=== PATIENT | female | born 1990 | race African-American/Black ===

== ENCOUNTER 2016-12-27 07:27 | Emergency (ER) | payer MEDICAID ==
[~2016-12-27] VITALS: Ht 165.1 cm; Wt 60.0 kg
[~2016-12-27 07:27] MED LIST: PANT20 PO; SUCR1TAB PO
[2016-12-27 07:31] VITALS: BP 124/70; PULSE 89; RESP 15; TEMP 98.5; O2SAT 98
[2016-12-27] MEDS ORDERED: IBUP-232 PO (07:42)
[2016-12-27] MEDS ORDERED: AMOX500C PO (07:42)
--- NOTE | 2016-12-27 08:07 | PD ---
HPI . left lower jaw tooth pain > 2 weeks Chief Complaint: Oral / Dental Pain or Problem Time Seen by Provider: 08:07 Travel History International Travel<30 days: No Contact w/Intl Traveler<30days: No Traveled to known affect area: No History of Present Illness HPI 26-year-old single here with complaints of left lower jaw tooth pain for greater than 2 weeks. Patient says she is a dentist appointment on January 11. She is here complaining of pain to the left lower wisdom tooth. She is requesting something for pain control. I explained to patient that she can use ibuprofen for pain control and will need to see the dentist for tooth extraction and f/u care. She is asking for pain meds and I advised her that this is something I cannot do. PFSH Past Medical History Depression: Yes Cancer: Yes Cardiovascular Problems: No Diminished Hearing: No Endocrine: No Genitourinary: Yes Immune Disorder: No Kidney Stones: Yes Musculoskeletal: Yes Neurologic: Yes Psychiatric: Yes Reproductive: No Respiratory: No ?: Not LMP: NOVEMBER 28, 2016 Social History Alcohol Use: No Tobacco Use: Yes Substance Use: Yes (marijuana occasionally. last time was 10/11) Allergies-Medications (Allergen,Severity, Reaction): Coded Allergies: No Known Allergies (Unverified , 12/27/16) Reported Meds & Prescriptions Reported Meds & Active Scripts Active Reported Ibuprofen 600 Mg Tab 600 Mg PO BID PRN Amoxicillin 500 Mg Cap 500 Mg PO BID Review of Systems General / Constitutional: No: Fever Eyes: No: Visual changes HENT: Positive: Dental Difficulties, No: Headaches Cardiovascular: No: Chest Pain or Discomfort Respiratory: No: Shortness of Breath Gastrointestinal: No: Abdominal Pain Genitourinary: No: Dysuria Musculoskeletal: No: Pain Skin: No Rash Neurologic: No: Weakness Psychiatric: No: Depression Endocrine: No: Polydipsia Hematologic/Lymphatic: No: Easy Bruising Physical Exam Narrative GENERAL: AAO x 3, no acute distress, Well-nourished, well-developed patient. SKIN: Warm and dry. No visible rashes or bruising. HEAD: Normocephalic and atraumatic. EYES: No scleral icterus. No injection or drainage. ENT: No nasal drainage noted. Mucous membranes pink. Airway patent. #17, minimally impacted wisdom tooth. No oral abscess or gingivitis. No facial edema NECK: Supple, trachea midline. No JVD. No lymphadenopathy. CARDIOVASCULAR: Regular rate and rhythm without murmurs, gallops, or rubs. RESPIRATORY: Breath sounds equal bilaterally. No accessory muscle use. No rhonchi or rales. GASTROINTESTINAL: Abdomen soft, non-tender, nondistended. EXTREMITIES: No cyanosis or edema. BACK: Nontender without obvious deformity. No CVA tenderness. PSYCH: AAO x 3, normal affect. Data Data Last Documented VS Vital Signs Date Time Temp Pulse Resp B/P Pulse Ox O2 Delivery O2 Flow Rate FiO2 12/27/16 07:31 98.5 89 15 124/70 98 MDM Medical Decision Making Medical Screen Exam Complete: Yes Emergency Medical Condition: No Medical Record Reviewed: Yes Differential Diagnosis impacted wisdom tooth, dental caries, less likely oral abscess Narrative Course 26-year-old single here with complaints of left lower jaw tooth pain for greater than 2 weeks. Patient says she is a dentist appointment on January 11. She is here complaining of pain to the left lower wisdom tooth. She is requesting something for pain control. A medical screening exam was performed: At the time of evaluation the presenting medical condition was determined not to be of an emergent nature. The patient was given the option of receiving additional care, but declined. Patient was given options for additional community resources from which to obtain care. The Patient Has Been advised to seek medical attention for their presenting complaint. The patient has been advised to return to the ER at any time if an emergent condition develops. Diagnosis Primary Impression: Encounter for medical screening examination Condition: Stable Yanet Tanner Dec 27, 2016 08:07
== END 2016-12-27 08:16 | disposition left against medical advice (07) ==
LOC: NETRI 07:27
DX: K08.89 Other specified disorders of teeth and supporting structures (principal); Z72.0 Tobacco use
CPT/HCPCS: 99281

== ENCOUNTER 2017-03-19 09:26 | Emergency (ER) | payer MEDICAID ==
[~2017-03-19] VITALS: Ht 162.6 cm; Wt 65.0 kg
[~2017-03-19 09:26] MED LIST changes: +AMOX500C PO; +IBUP-232 PO; -PANT20 PO; -SUCR1TAB PO
[2017-03-19 09:27] VITALS: BP 134/66; PULSE 68; RESP 18; TEMP 97.5; O2SAT 100
[2017-03-19] MEDS ORDERED: TRICTAB PO (09:41)
[2017-03-19] MEDS ORDERED: SODIUM CHLOR 0.9% 1000 ML INJ 1,000 ML IV ONE (09:46)
[2017-03-19] MEDS ORDERED: ONDANSETRON HCL 4 MG/2 ML VIAL IVP ONE (10:00)
[2017-03-19] MEDS ORDERED: ZOFR4TAB3 SL (10:34)
--- NOTE | 2017-03-19 10:34 | PD ---
HPI . Vomiting Chief Complaint: Related Problem Time Seen by Provider: 09:45 Travel History International Travel<30 days: No Contact w/Intl Traveler<30days: No Traveled to known affect area: No History of Present Illness HPI Patient presents with a chief complaint of vomiting and diarrhea. Onset was last night. She states that she has had 6 episodes of emesis and 4 episodes of diarrhea since early this morning. No exacerbating or relieving factors. No associated fever, urinary tract symptoms, vaginal bleeding/discharge. The patient states that she is 4 months by dates. She states that she is scheduled for an ultrasound and pelvic exam next week. She states that her care thus far has included blood work. Her last normal menstrual period was 3. She is a Ab1 PFSH Past Medical History Anemia: Yes Depression: Yes Cancer: Yes Cardiovascular Problems: No Diminished Hearing: No Endocrine: No Genitourinary: Yes Headaches: Yes Immune Disorder: No Kidney Stones: Yes Musculoskeletal: Yes Neurologic: Yes Psychiatric: Yes Reproductive: No Respiratory: No Ulcer: Yes Tetanus Vaccination: > 5 Years Influenza Vaccination: No ?: LMP: 11/28/16 : 4 Para: 2 Past Surgical History Surgical History: No Previous Surgery Social History Alcohol Use: No Tobacco Use: No Substance Use: No (denies) Allergies-Medications (Allergen,Severity, Reaction): Coded Allergies: No Known Allergies (Unverified , 03/19/17) Reported Meds & Prescriptions Reported Meds & Active Scripts Active Zofran Odt (Ondansetron Odt) 4 Mg Tab 4 Mg SL Q6HR PRN Reported ( Vit-Ferrous Fumarate) 1 Tab Tab 1 Tab PO DAILY Review of Systems Except as stated in HPI: all other systems reviewed are Neg General / Constitutional: No: Fever, Chills Gastrointestinal: Positive: Nausea, Vomiting, Diarrhea, Abdominal Pain Genitourinary: Positive: Pelvic Pain, No: Urgency, Frequency, Dysuria, Discharge, Vaginal Bleeding Physical Exam Narrative GENERAL: Awake and alert. She had some dry heaves while I was in the room examining her. SKIN: Warm and dry. HEAD: Atraumatic. Normocephalic. EYES: Pupils equal and round. Extraocular movements are intact. ENT: No nasal bleeding or discharge. Mucous membranes pink and moist. NECK: Trachea midline. Neck is supple. CARDIOVASCULAR: Regular rate and rhythm. Heart sounds are normal. RESPIRATORY: No accessory muscle use. Lungs are clear. GASTROINTESTINAL: Abdomen soft. Suprapubic tenderness. Nondistended. MUSCULOSKELETAL: No obvious deformities. No edema. NEUROLOGICAL: Awake and alert. No obvious cranial nerve deficits. Motor grossly within normal limits. Normal speech. PSYCHIATRIC: Appropriate mood and affect; insight and judgment normal. Data Data Last Documented VS Vital Signs Date Time Temp Pulse Resp B/P Pulse Ox O2 Delivery O2 Flow Rate FiO2 03/19/17 09:27 97.5 68 18 134/66 100 Orders Urinalysis - C+S If Indicated (03/19/17 09:46) Sodium Chlor 0.9% 1000 Ml Inj (Ns 1000 M (03/19/17 09:46) Ondansetron Inj (Zofran Inj) (03/19/17 10:00) Ed Poc Ultrasound (03/19/17 09:46) Heart Tones (03/19/17 10:09) Labs Laboratory Tests Test 03/19/17 11:15 Urine Color YELLOW Urine Turbidity CLEAR Urine pH 8.5 Urine Specific [place] 1.021 Urine Protein 30 mg/dL Urine Glucose (UA) NEG mg/dL Urine Ketones 40 mg/dL Urine Occult Blood NEG Urine Nitrite NEG Urine Bilirubin NEG Urine Urobilinogen LESS THAN 2.0 MG/DL Urine Leukocyte Esterase NEG Urine RBC 4 /hpf Urine WBC 1 /hpf Urine Squamous Epithelial <1 /hpf Cells Urine Mucus FEW /lpf Microscopic Urinalysis Comment CULT NOT INDICATED MDM Medical Decision Making Medical Screen Exam Complete: Yes Emergency Medical Condition: Yes Differential Diagnosis Differential diagnosis includes but is not limited to viral gastritis, food poisoning, pancreatitis, pneumonia, hepatitis, acute coronary syndrome, Differential diagnosis of pelvic pain includes but is not limited to UTI, PID, ectopic , spontaneous AB, constipation, viral illness Narrative Course Patient presents for treatment of vomiting and diarrhea as well as pelvic pain in . Ultrasound shows a viable IUP. heart tones are 154. Patient reported immediate relief of symptoms with Zofran. UA is unremarkable. Emergency Department evaluation reveals no emergency medical condition. The patient is stable for discharge to home. Procedures Procedure Narrative Emergency Department Pelvic ultrasound was performed with patient consent. The curvilinear probe was used in the transverse and sagittal views within the suprapubic region revealing a viable intrauterine . heart rate was 154. Diagnosis Primary Impression: Pelvic pain affecting Qualified Code: O26.892 - Pelvic pain affecting , second trimester Additional Impression: Gastroenteritis Patient Instructions: Gastroenteritis (DC), General Instructions Med/Other Pt SpecificInfo: Prescription(s) given Scripts Ondansetron Odt (Zofran Odt)4 Mg Tab4 Mg SL Q6HR PRN (Nausea/Vomiting) #30 TAB Ref 0 Prov:Jadyn Love MD 03/19/17 Disposition: 01 DISCHARGE HOME Condition: Stable Jadyn Love MD Mar 19, 2017 10:34
[2017-03-19 11:26] LABS: BLOOD, URINE NEG (NEG); COMMENT (UR) CULT NOT INDICATED; CULTURE IF INDICATED CULT NOT INDICATED; GLUCOSE,URINE NEG (NEG); KETONE, URINE 40 mg/dL (NEG); MUCUS URINE FEW /lpf (OCC); NITRITE,URINE NEG (NEG); PH, URINE 8.5 (5.0-8.5); SQUAMOUS EPITHELIAL CELL URINE <1 /hpf (0-5); URINE COLOR YELLOW (YELLW/STRAW)
[2017-03-19 11:58] VITALS: BP 122/64
== END 2017-03-19 12:00 | disposition home or self-care (01) ==
LOC: NEPD 09:26
DX: O26.892 Other specified pregnancy related conditions, second trimester (principal); K52.9 Noninfective gastroenteritis and colitis, unspecified; Z3A.00 Weeks of gestation of pregnancy not specified
CPT/HCPCS: 81001; 96361; 96374; 99284; J2405; J7030

== ENCOUNTER 2017-07-20 18:45 | Emergency (ER) | payer MEDICAID ==
[~2017-07-20 18:45] MED LIST changes: -AMOX500C PO; -IBUP-232 PO; +TRICTAB PO; +ZOFR4TAB3 SL
[2017-07-20 19:10] VITALS: PULSE 71
[2017-07-20 19:15] VITALS: PULSE 80
--- NOTE | 2017-07-20 19:18 | PD ---
HPI Chief Complaint Pelvic pain Date Seen: Jul 20, 2017 Time Seen: 19:12 Travel History International Travel<30 Days: No Contact w/Intl Traveler<30Days: No Known Affected Area: No History of Present Illness HPI 26-year-old who is at 33 weeks and 2 days comes in complaining of suprapubic pain that began yesterday. It worsens with movement and whenever she tries to stand up from a lying down position. She was worried because the pain had been persistent since yesterday morning so she came in via [facility]. Patient obtains care at [facility] and states that she's had no antepartum complications. Patient denies vaginal discharge, vaginal bleeding, or contractions. She's had good movement and has a history of 2 prior spontaneous vaginal deliveries both were full-term Weeks Gestation: 33 (33.2) Para: 2 : 3 History Past Medical History Medical History: Denies Significant Hx Obstetric History Obstetric History Full-term, spontaneous vaginal delivery 2 Past Surgical History Surgical History: No Previous Surgery Family History Family History: Negative Social History Alcohol Use: No Tobacco Use: No Substance Abuse: Yes (marijuana use prior to ) Allergies-Medications (Allergen,Severity, Reaction): Coded Allergies: No Known Allergies (Unverified , 03/19/17) Home Meds Active Scripts Ondansetron Odt (Zofran Odt) 4 Mg Tab, 4 MG SL Q6HR Y for Nausea/Vomiting, #30 TAB 0 Refills Prov:Jadyn Love MD 03/19/17 Reported Medications Vit-Ferrous Fumarate () 1 Tab Tab, 1 TAB PO DAILY for Nutritional Supplement, #30 TAB 0 Refills 03/19/17 Review of Systems Except as stated in HPI: all other systems reviewed are Neg Physical Exam Narrative GENERAL: Well-nourished, well-developed patient. SKIN: Warm and dry. HEAD: Normocephalic and atraumatic. EYES: No scleral icterus. No injection or drainage. ENT: No nasal drainage noted. Mucous membranes pink. Airway patent. NECK: Supple, trachea midline. No JVD. CARDIOVASCULAR: Regular rate and rhythm without murmurs, gallops, or rubs. RESPIRATORY: Breath sounds equal bilaterally. No accessory muscle use. ABDOMEN/GI: Abdomen soft, non-tender, bowel sounds present, no rebound, no guarding Gravid to [-33] weeks size Fundal Height: [-] GENITOURINARY: Pain right above the pubic bone with palpation External Genitalia: intact and normal in appearance BUS glands: [Normal-] Cervix: [-Posterior] Dilatation: [-Closed] Effacement: [-0] Station: [High-] Presentation: [-Vertex] Membranes: [intact ] Uterine Contractions: [Absent-] FHT's: Category: [-1] Baseline: [-140] Reactive: [Moderate-] Variability: [-Moderate] Decels: [Absent-] EXTREMITIES: No cyanosis or edema. BACK: Nontender without obvious deformity. No CVA tenderness. NEUROLOGICAL: Awake and alert. Motor and sensory grossly within normal limits. Five out of 5 muscle strength in all muscle groups. Normal speech. Data Data Vital Signs Reviewed: Yes Orders Orders Vital Signs (Adult) .ON ADMISSION (07/20/17 19:11) ^ Labor Status (07/20/17 19:11) Urinalysis - C+S If Indicated (07/20/17 19:11) Labs Urine dip, 1+ ketones, 1+ protein, negative leukocyte esterase, negative nitrite MDM Medical Record Reviewed: Yes Plan 26-year-old who is at 33 weeks and 2 days with discomforts of No signs of labor with a closed cervix and absence of contraction activity Urine dip shows no evidence of infection Recommend rest and follow-up to her OB appointment is tomorrow morning at 10 AM Diagnosis Diagnosis: Primary Impression: 33 weeks gestation of Additional Impressions: Pelvic pain affecting in third trimester, antepartum History of substance abuse Disposition: DISCHARGE HOME Amalia Viramontes MD Jul 20, 2017 19:18
[2017-07-20 19:20] VITALS: PULSE 72
[2017-07-20 19:25] VITALS: PULSE 74
[2017-07-20 19:30] VITALS: PULSE 96
[2017-07-20 20:00] LABS: BACTERIA, URINE RARE /hpf; BILIRUBIN, URINE NEG (NEG); BLOOD, URINE TRACE (NEG); GLUCOSE,URINE NEG (NEG); HYALINE CAST, URINE 1 /lpf (RARE); KETONE, URINE 10 mg/dL (NEG); NITRITE,URINE NEG (NEG); PH, URINE 7.5 (5.0-8.5); SQUAMOUS EPITHELIAL CELL URINE 1 /hpf (0-5); URINE COLOR YELLOW (YELLW/STRAW); URINE LEUKOCYTE ESTERASE NEG (NEG)
== END 2017-07-20 19:41 | disposition home or self-care (01) ==
LOC: HOBED 18:45
DX: O26.893 Other specified pregnancy related conditions, third trimester (principal); R10.2 Pelvic and perineal pain; Z3A.33 33 weeks gestation of pregnancy
CPT/HCPCS: 59025; 81001

== ENCOUNTER 2017-08-14 04:36 | Emergency (ER) | payer MEDICAID ==
--- NOTE | 2017-08-14 05:54 | PD ---
HPI Chief Complaint Vaginal pressure Travel History International Travel<30 Days: No Contact w/Intl Traveler<30Days: No Known Affected Area: No History of Present Illness HPI 26-year-old 3 para 2001, IUP at 37.0 care uncomplicated per patient report The patient presents complaining of 3 sharp pains in her suprapubic area that were sharp in nature and lasted a short time that occurred 3 hours ago. She also reports that she has the sensation of [id number] pelvic pressure. She denies feeling any painful contractions. She denies any leaking of fluid or vaginal bleeding. She reports good movement. However is concerned about this pelvic pressure. There are no aggravating or alleviating factors and no attempted treatments Weeks Gestation: 37 Para: 2 : 3 History Past Medical History Medical History: Denies Significant Hx Obstetric History Obstetric History 002 2 full-term vaginal deliveries Past Surgical History Surgical History: No Previous Surgery Family History Family History: Negative Social History Alcohol Use: No Tobacco Use: No Substance Abuse: No Allergies-Medications (Allergen,Severity, Reaction): Coded Allergies: No Known Allergies (Unverified , 03/19/17) Home Meds Active Scripts Ondansetron Odt (Zofran Odt) 4 Mg Tab, 4 MG SL Q6HR Y for Nausea/Vomiting, #30 TAB 0 Refills Prov:Jadyn Love MD 03/19/17 Reported Medications Vit-Ferrous Fumarate () 1 Tab Tab, 1 TAB PO DAILY for Nutritional Supplement, #30 TAB 0 Refills 03/19/17 Review of Systems Except as stated in HPI: all other systems reviewed are Neg Physical Exam Narrative GENERAL: Well-nourished, well-developed patient. SKIN: Warm and dry. HEAD: Normocephalic and atraumatic. EYES: No scleral icterus. No injection or drainage. ENT: No nasal drainage noted. Mucous membranes pink. Airway patent. NECK: Supple, trachea midline. No JVD. CARDIOVASCULAR: Regular rate and rhythm without murmurs, gallops, or rubs. RESPIRATORY: Breath sounds equal bilaterally. No accessory muscle use. BREASTS: Deferred ABDOMEN/GI: Abdomen soft, non-tender, bowel sounds present, no rebound, no guarding Gravid GENITOURINARY: External Genitalia: intact and normal in appearance. Normal BUS. No cervical or vaginal masses. Normal rugae. Physiologic discharge. SVE 2-3/ thick/high/posterior, essentially unchanged from prior exam FHT's: heart tones in the 130s with moderate long-term variability, good accelerations, no decelerations are noted. The patient is having contractions but there are name irregular pattern. EXTREMITIES: No cyanosis or edema. BACK: Nontender without obvious deformity. No CVA tenderness. NEUROLOGICAL: Awake and alert. Motor and sensory grossly within normal limits. Five out of 5 muscle strength in all muscle groups. Normal speech. Psychiatric: Grossly normal memory [facility] Plan Assessment/plan: 1. IUP at 37 weeks 2. Pelvic pressure: The patient is having pelvic pressure as is appropriate for gestational age. There is no evidence of active labor. Her cervical exam is essentially unchanged since her previous here. Strict labor precautions 3. Sharp pains: Likely musculoskeletal in nature, comfort measures 4. well-being: Reassuring testing with reactive NST. kick counts daily 5. Follow-up with primary OB in 2-3 days or sooner if needed Rimma Quezada MD Aug 14, 2017 05:54
--- NOTE | 2017-08-14 05:56 | PD ---
MDM Diagnosis Diagnosis: Primary Impression: 37 weeks gestation of Additional Impression: False labor Disposition: 01 DISCHARGE HOME Condition: Stable Patient Instructions: General Instructions, Having Your Baby: The Labor Process (GEN) Departure Forms: Tests/Procedures Rimma Quezada MD Aug 14, 2017 05:55
== END 2017-08-14 06:11 | disposition home or self-care (01) ==
LOC: HOBED 04:36
DX: O47.1 False labor at or after 37 completed weeks of gestation (principal); Z3A.37 37 weeks gestation of pregnancy
CPT/HCPCS: 59025

== ENCOUNTER 2017-08-30 00:51 | Emergency (ER) | payer MEDICAID ==
[~2017-08-30] VITALS: Ht 162.6 cm; Wt 73.5 kg
[2017-08-30 01:47] VITALS: BP 135/83; PULSE 66
[2017-08-30] MEDS ORDERED: ONDANSETRON ODT 4 MG TAB PO ONE (02:00)
--- NOTE | 2017-08-30 02:01 | PD ---
HPI Chief Complaint Possible contractions Date Seen: Aug 30, 2017 Time Seen: 01:54 Travel History International Travel<30 Days: No Contact w/Intl Traveler<30Days: No Known Affected Area: No History of Present Illness HPI 26-year-old 3 para 2 at 39-2/7 weeks' gestation who started having some cramping at 11:30 PM. She denies any leakage of fluid, bleeding or constant pain. History Past Medical History Medical History: Denies Significant Hx Obstetric History Obstetric History 2 term vaginal deliveries Past Surgical History Surgical History: No Previous Surgery Family History Family History: Negative Social History Alcohol Use: No Tobacco Use: No Substance Abuse: No Allergies-Medications (Allergen,Severity, Reaction): Coded Allergies: No Known Allergies (Unverified , 03/19/17) Home Meds Active Scripts Ondansetron Odt (Zofran Odt) 4 Mg Tab, 4 MG SL Q6HR Y for Nausea/Vomiting, #30 TAB 0 Refills Prov:Jadyn Love MD 03/19/17 Reported Medications Vit-Ferrous Fumarate () 1 Tab Tab, 1 TAB PO DAILY for Nutritional Supplement, #30 TAB 0 Refills 03/19/17 Review of Systems Except as stated in HPI: all other systems reviewed are Neg Physical Exam Narrative GENERAL: Well-nourished, well-developed patient. SKIN: Warm and dry. HEAD: Normocephalic and atraumatic. EYES: No scleral icterus. No injection or drainage. ENT: No nasal drainage noted. Mucous membranes pink. Airway patent. NECK: Supple, trachea midline. No JVD. CARDIOVASCULAR: Regular rate and rhythm without murmurs, gallops, or rubs. RESPIRATORY: Breath sounds equal bilaterally. No accessory muscle use. ABDOMEN/GI: Abdomen soft, non-tender, bowel sounds present, no rebound, no guarding Gravid to [-] weeks size Fundal Height: [-] GENITOURINARY: External Genitalia: intact and normal in appearance BUS glands: [-] Cervix: [-] Dilatation: [-2] Effacement: [lg-] Station: [-2-] Presentation: [vtx-] Membranes: [intact] Uterine Contractions: [Irregular-] FHT's: Category: [-] Baseline: [-] Reactive: [Yes-] Variability: [-Moderate] Decels: [Single variable-] EXTREMITIES: No cyanosis or edema. BACK: Nontender without obvious deformity. No CVA tenderness. NEUROLOGICAL: Awake and alert. Motor and sensory grossly within normal limits. Five out of 5 muscle strength in all muscle groups. Normal speech. Data Data Vital Signs Reviewed: Yes Orders Orders Vital Signs (Adult) .ON ADMISSION (08/30/17 01:44) ^ Labor Status (08/30/17 01:44) Urinalysis - C+S If Indicated (08/30/17 01:44) Group B Strep: Negative MDM Medical Record Reviewed: Yes Narrative Course / MDM Assessment: 39+ week multipara with mild irregular contractions and no cervical change from her last evaluation, #2 mild blood pressure elevation with trace proteinuria and no other symptoms suggestive of preeclampsia. Plan: Labor precautions were reviewed with the patient, #2 PIH precautions were reviewed. Diagnosis Diagnosis: Primary Impression: 39 weeks gestation of Additional Impression: Irregular uterine contractions Disposition: 01 DISCHARGE HOME Condition: Good Ash Melgoza MD Aug 30, 2017 02:01
[2017-08-30 03:34] LABS: BACTERIA, URINE FEW /hpf; BLOOD, URINE SMALL (NEG); COMMENT (UR) CULT NOT INDICATED; CULTURE IF INDICATED CULT NOT INDICATED; GLUCOSE,URINE NEG (NEG); HYALINE CAST, URINE 1 /lpf (RARE); KETONE, URINE NEG (NEG); MUCUS URINE FEW /lpf (OCC); NITRITE,URINE NEG (NEG); SQUAMOUS EPITHELIAL CELL URINE 2 /hpf (0-5); URINE COLOR YELLOW (YELLW/STRAW)
[2017-08-31] MEDS ORDERED: FERR325T18 PO (23:03)
== END 2017-08-30 02:30 | disposition home or self-care (01) ==
LOC: HOBED 00:51
DX: O47.1 False labor at or after 37 completed weeks of gestation (principal); Z3A.39 39 weeks gestation of pregnancy
CPT/HCPCS: 59025; 81001

== ENCOUNTER 2017-08-31 22:30 | Inpatient (IN) | payer MEDICAID ==
[~2017-08-31] VITALS: Ht 162.6 cm; Wt 73.0 kg
[2017-08-31] MEDS ORDERED: LIDOCAINE HCL 1% 50 ML VIAL I-DERMAL PRN (22:45)
[2017-08-31] MEDS ORDERED: OXYTOCIN 30 UNITS-500ML PREMIX 500 ML IV ONE (22:45)
[2017-08-31] MEDS ORDERED: LACTATED RINGER'S 1000 ML INJ 1,000 ML IV PRN (22:45)
[2017-08-31] MEDS ORDERED: MINERAL OIL 10 ML VIAL TOPICAL PRN (22:45)
[2017-08-31] MEDS ORDERED: SODIUM CHLORID 0.9% 500 ML INJ 500 ML IV PRN (22:45)
[2017-08-31] MEDS ORDERED: CITRIC ACID-SODIUM CITRATE LIQ 30 ML UDC PO SCH (22:45)
[2017-08-31] MEDS ORDERED: LIDOCAINE HCL 1% 50 ML VIAL INFIL PRN (22:45)
[2017-08-31] MEDS ORDERED: LACTATED RINGER'S 1000 ML INJ 1,000 ML IV SCH (22:45)
[2017-08-31 22:47] VITALS: BP 132/97; PULSE 72
--- NOTE | 2017-08-31 22:51 | HHI.HP ---
HPI Chief Complaint Contractions Date Seen: Aug 31, 2017 Time Seen: 22:45 Travel History International Travel<30 Days: No Contact w/Intl Traveler<30Days: No Known Affected Area: No History of Present Illness HPI 26-year-old black female at 39 weeks presents in active labor, contractions are regular membranes intact and her cervix is 6cm, heart rate tracing is reactive contractions are regular and painful, no bleeding Weeks Gestation: 39 Para: 2 : 3 History Obstetric History Obstetric History Vaginal deliveries 2 Social History Alcohol Use: No Tobacco Use: No Substance Abuse: No Allergies-Medications (Allergen,Severity, Reaction): Coded Allergies: No Known Allergies (Unverified Allergy, Unknown, 08/30/17) Home Meds Active Scripts Ondansetron Odt (Zofran Odt) 4 Mg Tab, 4 MG SL Q6HR Y for Nausea/Vomiting, #30 TAB 0 Refills Prov:Jadyn Love MD 03/19/17 Reported Medications Vit-Ferrous Fumarate () 1 Tab Tab, 1 TAB PO DAILY for Nutritional Supplement, #30 TAB 0 Refills 03/19/17 Review of Systems General / Constitutional: No: Fever, Weight Gain, Chills, Other Eyes: No: Diploplia, Blurred Vision, Visual changes, Pain, Photophobia HENT: No: Headaches, Vertigo, Lightheadedness Cardiovascular: No: Irregular Rhythm, Chest Pain or Discomfort, Palpitations, Tachycardia, Syncope, Varicosities, Edema, Cyanosis Respiratory: No: Cough, Short of Breath, Other Gastrointestinal: No: Nausea, Vomiting, Diarrhea Genitourinary: No: Decreased Urinary Output, Oliguria Musculoskeletal: No: Limited ROM, Weakness, Cramping, Edema, Pain Skin: No Rash, No Itching, No Dryness, No Lumps, No Change in Pigmentation, No Change in Nails, No Alopecia, No Lesions Neurologic: No: Weakness, Dizziness, Syncope, Focal Abnormalities, Coordination Problem, Headache, Slurred Speech, Seizures Psychiatric: No: Depression, Suicidal Ideations, Homicidal Ideation Endocrine: No: Heat Intolerance, Cold Intolerance, Polydipsia, Polyuria, Other Physical Exam Narrative GENERAL: Well-nourished, well-developed patient. SKIN: Warm and dry. HEAD: Normocephalic and atraumatic. EYES: No scleral icterus. No injection or drainage. ENT: No nasal drainage noted. Mucous membranes pink. Airway patent. NECK: Supple, trachea midline. No JVD. CARDIOVASCULAR: Regular rate and rhythm without murmurs, gallops, or rubs. RESPIRATORY: Breath sounds equal bilaterally. No accessory muscle use. BREASTS: Bilateral exam showed no masses , no retractions, no nipple discharge. ABDOMEN/GI: Abdomen soft, non-tender, bowel sounds present, no rebound, no guarding Gravid to [-38] weeks size Fundal Height: [38-] GENITOURINARY: External Genitalia: intact and normal in appearance BUS glands: [-] Cervix: [-] Dilatation: [6-] Effacement: [-90] Station: [-1] Presentation: [-vtx] Membranes: [intact ] Uterine Contractions: [reg-] FHT's: Category: [-1] Baseline: [133-] Reactive: [yes-] Variability: [mod-] Decels: [0-] EXTREMITIES: No cyanosis or edema. BACK: Nontender without obvious deformity. No CVA tenderness. NEUROLOGICAL: Awake and alert. Motor and sensory grossly within normal limits. Five out of 5 muscle strength in all muscle groups. Normal speech. Caprini VTE Risk Assessment Caprini VTE Risk Assessment: No/Low Risk (score <= 1) Caprini Risk Assessment Model Point Value = 1 Point Value = 2 Point Value = 3 Point Value = 5 Age 41-60 Minor surgery BMI > 25 kg/m2 Swollen legs Varicose veins or History of unexplained or recurrent spontaneous Oral contraceptives or hormone replacement Sepsis (< 1 month) Serious lung disease, including pneumonia (< 1 month) Abnormal pulmonary function Acute myocardial infarction Congestive heart failure (< 1 month) History of inflammatory bowel disease Medical patient at bed rest Age 61-74 Arthroscopic surgery Major open surgery (> 45 min) Laparoscopic surgery (> 45 min) Malignancy Confined to bed (> 72 hours) Immobilizing plaster cast Central venous access Age >= 75 History of VTE Family history of VTE Factor V Leiden Prothrombin [id number] Lupus anticoagulant Anticardiolipin antibodies Elevated serum homocysteine Heparin-induced thrombocytopenia Other congenital or acquired thrombophilia Stroke (< 1 month) Elective arthroplasty Hip, pelvis, or leg fracture Acute spinal cord injury (< 1 month) Prophylaxis Regimen Total Risk Factor Score Risk Level Prophylaxis Regimen 0-1 Low Early ambulation 2 Moderate Order ONE of the following: *Sequential Compression Device (SCD) *Heparin 5000 units SQ BID 3-4 Higher Order ONE of the following medications: *Heparin 5000 units SQ TID *Enoxaparin/Lovenox 40 mg SQ daily (WT < 150 kg, CrCl > 30 mL/min) *Enoxaparin/Lovenox 30 mg SQ daily (WT < 150 kg, CrCl > 10-29 mL/min) *Enoxaparin/Lovenox 30 mg SQ BID (WT < 150 kg, CrCl > 30 mL/min) AND/OR *Sequential Compression Device (SCD) 5 or more Highest Order ONE of the following medications: *Heparin 5000 units SQ TID (Preferred with Epidurals) *Enoxaparin/Lovenox 40 mg SQ daily (WT < 150 kg, CrCl > 30 mL/min) *Enoxaparin/Lovenox 30 mg SQ daily (WT < 150 kg, CrCl > 10-29 mL/min) *Enoxaparin/Lovenox 30 mg SQ BID (WT < 150 kg, CrCl > 30 mL/min) AND *Sequential Compression Device (SCD) Data Data Orders Orders Admit To Inpatient (08/31/17 ) Vital Signs (Adult) .Per protocol (08/31/17 22:45) Heart (08/31/17 22:45) Amnioinfusion (08/31/17 22:45) Urinary Catheter Management .ONCE (08/31/17 22:45) Lactated Ringer's 1000 Ml Inj (Lr 1000 M (08/31/17 22:45) Lactated Ringer's 1000 Ml Inj (Lr 1000 M (08/31/17 22:45) Sodium Chlorid 0.9% 500 Ml Inj (Ns 500 M (08/31/17 22:45) Sodium Chlor 0.9% 1000 Ml Inj (Ns 1000 M (08/31/17 23:05) Lidocaine 1% Inj (50 Ml) (Xylocaine 1% I (08/31/17 22:45) Citric Acid-Sodium Citrate Liq (Bicitra (08/31/17 22:45) Fentanyl Inj (Fentanyl Inj) (08/31/17 22:45) Fentanyl Inj (Fentanyl Inj) (08/31/17 22:45) Complete Blood Count With Diff (08/31/17 22:45) Hold Clot (08/31/17 22:45) Abo/Rh Blood Type (08/31/17 22:45) Urinalysis - C+S If Indicated (08/31/17 22:45) Drug Screen, Random Urine (08/31/17 22:45) Resp Oxygen Non Rebreathe Mask (08/31/17 ) ^ Epidural / Intrathecal Infus (08/31/17 22:45) Oxytocin 30 Units-500ml Premix (Pitocin (08/31/17 22:45) Lidocaine 1% Inj (50 Ml) (Xylocaine 1% I (08/31/17 22:45) Light Mineral Oil (Muri-Lube Oil) (08/31/17 22:45) Group B Strep: Negative Assessment/Plan Assessment and Plan This is a 26-year-old black female 39 weeks presents in active labor, cervix 6 cm dilated, heart rate tracing is reactive contractions are regular and painful, no bleeding noted. Plan--admit plan manage labor and anticipate vaginal delivery Sathish Nice II, MD Aug 31, 2017 22:51
[2017-08-31] MEDS ORDERED: FERR325T18 PO (23:03)
[2017-08-31] MEDS ORDERED: SODIUM CHLOR 0.9% 1000 ML INJ 1,000 ML IV PRN (23:05)
[2017-08-31 23:15] VITALS: RESP 18
[2017-08-31 23:20] LABS: AUTOMATED NEUTROPHIL # 3.2 TH/MM3 (1.8-7.7); BASOPHIL # 0.1 TH/MM3 (0-0.2); BASOPHIL % 1.1 % (0.0-2.0); EOSINOPHIL % 0.6 % (0.0-4.0); HEMATOCRIT 33.8 % (35.0-46.0); HEMO FLAGS DIFF FINAL; LYMPH % 32.3 % (9.0-44.0); LYMPHOCYTE # 1.9 TH/MM3 (1.0-4.8); MEAN CELL VOLUME 96.1 FL (80.0-100.0); MEAN CORPUSCULAR HEMOGLOBIN 31.8 PG (27.0-34.0); MEAN CORPUSCULAR HGB CONC 33.1 % (32.0-36.0); MONO % 10.6 % (0.0-8.0); NEUT % 55.4 % (16.0-70.0); PLATELET COUNT 239 TH/MM3 (150-450); RED BLOOD COUNT 3.51 MIL/MM3 (4.00-5.30); RED CELL DISTRIBUTION WIDTH 14.4 % (11.6-17.2); WHITE BLOOD COUNT 5.8 TH/MM3 (4.0-11.0)
[2017-08-31 23:21] LABS: BACTERIA, URINE FEW /hpf; BLOOD, URINE TRACE (NEG); COMMENT (UR) CULT NOT INDICATED; CULTURE IF INDICATED CULT NOT INDICATED; GLUCOSE,URINE NEG (NEG); KETONE, URINE NEG (NEG); MUCUS URINE FEW /lpf (OCC); NITRITE,URINE NEG (NEG); SQUAMOUS EPITHELIAL CELL URINE 12 /hpf (0-5); URINE COLOR YELLOW (YELLW/STRAW)
[2017-08-31 23:30] VITALS: RESP 18
[2017-08-31 23:45] VITALS: RESP 18
[2017-09-01] VITALS (12 sets, daily range): BP systolic 142–149; BP diastolic 87–97; PULSE 64–79; RESP 17–18; TEMP 97.6–98.1
[2017-09-01] MEDS ORDERED: BENZOCAINE 20% TOPICAL SPRAY 60 ML CAN TOPICAL PRN (01:00)
[2017-09-01] MEDS ORDERED: oxyCODONE/ACETAMINOPHEN 5 MG/325 MG TAB PO PRN (01:00)
[2017-09-01] MEDS ORDERED: WITCH HAZEL 50%/GLYCERIN 12.5% 40 PAD JAR TOPICAL PRN (01:00)
[2017-09-01] MEDS ORDERED: DOCUSATE SODIUM 50 MG/SENNA 8.6 MG TAB PO PRN (01:00)
[2017-09-01] MEDS ORDERED: OXYTOCIN 30 UNITS-500ML PREMIX 500 ML IV SCH (01:00)
[2017-09-01] MEDS ORDERED: ONDANSETRON ODT 4 MG TAB PO PRN (01:00)
[2017-09-01] MEDS ORDERED: ZOLPIDEM TARTRATE 5 MG TAB PO PRN (01:00)
[2017-09-01] MEDS ORDERED: ALUMINUM/MAGNESIUM/SIMETH 30 ML CUP PO PRN (01:00)
[2017-09-01] MEDS ORDERED: ACETAMINOPHEN 325 MG TAB PO PRN (01:00)
[2017-09-01] MEDS ORDERED: SODIUM CHLORIDE 0.9% FLUSH 10 ML FLUSH IV FLUSH PRN (01:00)
--- NOTE | 2017-09-01 01:00 | PD.OB.DELI ---
Weeks gestation: 39 Gest age assessed date: Aug 31, 2017 Gest age assessed time: 22:30 Pt started active labor?: Yes Active labor start date: Aug 31, 2017 Active labor start time: 20:00 Medical induction of labor?: No Artificial rupture of membrane: No Anesthesia: None Episiotomy: None Vaginal Delivery: Normal Presentation: Occiput anterior Nuchal Cord: None Delayed cord clamping (45 sec): Yes : Male Delivery date: Sep 01, 2017 Delivery time: 00:49 One Minute : 8 Five Minute : 9 Weight: 3170 gm Placenta: Spontaneous delivery, Intact Laceration: No lacerations Estimated blood loss: 100 cc Sathish Nice II, MD Sep 01, 2017 01:00
[2017-09-01] MEDS: IBUPROFEN 800 MG TAB PO PRN ×3 (03:26→20:15)
--- NOTE | 2017-09-01 08:54 | HHI.OB ---
Subjective Post Day: 0 Remarks day #0. AFVSS overnight. Pain well controlled. Lochia less than a period. Denies dysuria. No breast tenderness. She is feeding the baby via bottle but is open to try breast feeding with encouragement. Appetite good. No nausea or vomiting. Plans to ambulate today. Denies calf pain, shortness of breath, or chest pain. Otherwise, she is doing well this morning and has no other complaints. Objective Vitals/I&O Vital Signs Date Time Temp Pulse Resp B/P (MAP) Pulse Ox O2 Delivery O2 Flow Rate FiO2 09/01/17 07:49 17 09/01/17 03:15 64 09/01/17 03:00 142/90 (107) 09/01/17 03:00 97.6 09/01/17 03:00 64 18 09/01/17 01:50 18 09/01/17 01:46 75 142/87 (105) 09/01/17 01:35 18 09/01/17 01:31 79 149/97 (114) 09/01/17 01:20 18 09/01/17 01:00 18 09/01/17 00:29 18 09/01/17 00:00 18 08/31/17 23:45 18 08/31/17 23:30 18 08/31/17 23:15 18 08/31/17 22:47 72 132/97 (109) Objective Remarks GENERAL: Well-nourished, well-developed patient. CARDIOVASCULAR: Regular rate and rhythm without murmurs, gallops, or rubs. RESPIRATORY: Breath sounds equal bilaterally. No accessory muscle use. ABDOMEN/GI: Abdomen soft, non-tender. Fundus: Firm, non-tender at umbilicus. GENITOURINARY: Light to moderate bleeding. EXTREMITIES: No cyanosis or edema, non-tender, without signs of DVT. Medications and IVs Current Medications Medications (Trade) Dose Ordered Sig/Audie Route Start Time Stop Time Status Last Admin (NS Flush) 2 ml BID IV FLUSH 09/01/17 09:00 (NS Flush) 2 ml UNSCH PRN IV FLUSH 09/01/17 01:00 (Tylenol) 650 mg Q4H PRN PO 09/01/17 01:00 (Motrin) 800 mg Q8H PRN PO 09/01/17 01:00 12/5/17 03:26 (Percocet 5-325 Mg) 1 tab Q4H PRN PO 09/01/17 01:00 (Americaine 20% Top Spr) 1 spray Q4H PRN TOPICAL 09/01/17 01:00 (Tucks Pads) 1 applic QID PRN TOPICAL 09/01/17 01:00 (Michelle-Colace) 2 tab Q12H PRN PO 09/01/17 01:00 (Ambien) 5 mg HS PRN PO 09/01/17 01:00 (M-M-R Ii Inj) 0.5 ml ONCE ONCE SQ 09/01/17 16:00 09/01/17 16:01 (Boostrix Inj) 0.5 ml ONCE ONCE IM 09/01/17 16:00 09/01/17 16:01 (Mag-Al Plus Susp Liq) 15 ml Q8H PRN PO 09/01/17 01:00 (Zofran Odt) 4 mg Q6H PRN PO 09/01/17 01:00 Assessment/Plan Assessment and Plan 26y/o female who is PPD#0 s/p spontaneous vaginal delivery -Continue routine care -Motrin and Percocet PRN for pain -Pericolase PRN for constipation -Encouraged OOB. Advised pelvic rest for 6 wks -Will need a follow-up appointment within 6 wks for post- check -Re: ctrl - patient would like the Depo-Provera shot Discussed with Dr. Nice Discharge Planning Discharge home in 1-2 days Maggi Alegria MD R2 Sep 01, 2017 08:53
[2017-09-01] MEDS ORDERED: SODIUM CHLORIDE 0.9% FLUSH 10 ML FLUSH IV FLUSH SCH (09:00)
[2017-09-01] MEDS ORDERED: MEASLES, MUMPS, RUBELLA VACCINE 0.5 ML VIAL SQ ONE (16:00)
[2017-09-01] MEDS ORDERED: DIPHTH/TETANUS/ACEL PERTUSSIS (BOOSTER) 0.5 ML VIAL/PFS IM ONE (16:00)
--- NOTE | 2017-09-02 07:10 | HHI.OB ---
Subjective Post Day: 1 Remarks day #1. AFVSS overnight. Pain well controlled. Lochia less than a period and less than the previous day. Denies dysuria. No breast tenderness. She is feeding the baby via bottle but is open to try . Appetite good. No nausea or vomiting. Plans to ambulate today. Denies calf pain, shortness of breath, or chest pain. Otherwise, she is doing well this morning and has no other complaints. Objective Vitals/I&O Vital Signs Date Time Temp Pulse Resp B/P (MAP) Pulse Ox O2 Delivery O2 Flow Rate FiO2 09/01/17 08:15 98.1 73 142/92 (109) 09/01/17 07:49 17 Objective Remarks GENERAL: Well-nourished, well-developed patient. CARDIOVASCULAR: Regular rate and rhythm without murmurs, gallops, or rubs. RESPIRATORY: Breath sounds equal bilaterally. No accessory muscle use. ABDOMEN/GI: Abdomen soft, non-tender. Fundus: Firm, non-tender below umbilicus. GENITOURINARY: Light to moderate bleeding. EXTREMITIES: No cyanosis or edema, non-tender, without signs of DVT. Medications and IVs Current Medications Medications (Trade) Dose Ordered Sig/Audie Route Start Time Stop Time Status Last Admin (NS Flush) 2 ml BID IV FLUSH 09/01/17 09:00 (NS Flush) 2 ml UNSCH PRN IV FLUSH 09/01/17 01:00 (Tylenol) 650 mg Q4H PRN PO 09/01/17 01:00 (Motrin) 800 mg Q8H PRN PO 09/01/17 01:00 09/01/17 20:15 (Percocet 5-325 Mg) 1 tab Q4H PRN PO 09/01/17 01:00 (Americaine 20% Top Spr) 1 spray Q4H PRN TOPICAL 09/01/17 01:00 (Tucks Pads) 1 applic QID PRN TOPICAL 09/01/17 01:00 (Michelle-Colace) 2 tab Q12H PRN PO 09/01/17 01:00 (Ambien) 5 mg HS PRN PO 09/01/17 01:00 (Mag-Al Plus Susp Liq) 15 ml Q8H PRN PO 09/01/17 01:00 (Zofran Odt) 4 mg Q6H PRN PO 09/01/17 01:00 (Depo-Provera Inj) 150 mg ONCE ONCE IM 09/03/17 10:00 09/03/17 10:01 Assessment/Plan Assessment and Plan 26y/o female who is PPD#1 s/p spontaneous vaginal delivery -Continue routine care -Motrin and Percocet PRN for pain -Pericolase PRN for constipation -Encouraged OOB. Advised pelvic rest for 6 wks -Will need a follow-up appointment within 6 wks for post- check -Re: ctrl - patient would like the Depo-Provera shot Discussed with Dr. Quezada Discharge Planning Discharge home today Maggi Alegria MD R2 Sep 02, 2017 07:10
[2017-09-02] MEDS ORDERED: IBUP1TAB7 PO (07:13)
[2017-09-02] MEDS ORDERED: PERI PO (07:13)
--- NOTE | 2017-09-02 07:14 | HHI.DCPOC ---
Discharge Care Plan Diagnosis: (1) Vaginal delivery Report Symptoms to Your Doctor -Temperature above 100.5 degrees -Redness, of incision or excessive or foul smelling drainage -Unusual pain or calf pain -Increased vaginal bleeding -Painful or difficulty urinating -Feelings of extreme sadness or anxiety after 2 weeks Goals to Promote Your Health * To prevent worsening of your condition and complications * To maintain your health at the optimal level Directions to Meet Your Goals Take your medications as prescribed Follow your dietary instruction Follow activity as directed Ensure plenty of rest for recovery Drink fluids for hydration Keep your appointments as scheduled Take your immunizations and boosters as scheduled If your symptoms worsen call your PCP, if no PCP go to Urgent Care Center or Emergency Room Smoking is Dangerous to Your Health. Avoid second hand smoke Call the 24-hour crisis hotline for domestic abuse at Maggi Alegria MD R2 Sep 02, 2017 07:14
[2017-09-02] MEDS: IBUPROFEN 800 MG TAB PO PRN (08:03)
[2017-09-02] MEDS ORDERED: medroxyPROGESTERone ACETATE SUSP 150 MG/ML SYRINGE IM ONE (12:51)
== END 2017-09-02 13:10 | disposition home or self-care (01) | DRG 775 ==
LOC: HOBED 22:30 → H2EB 22:47 → H1EA 09-01 03:00
PROVIDERS: ADMIT Obstetrics & Gynecology Maternal & Fetal Medicine; ATTEND Obstetrics & Gynecology Maternal & Fetal Medicine
PROC: 10E0XZZ Delivery of Products of Conception, External Approach (ICD-10-PCS; principal; 2017-09-01)
DX: O80 Encounter for full-term uncomplicated delivery (principal); Z3A.39 39 weeks gestation of pregnancy; Z37.0 Single live birth
CPT/HCPCS: 80307; 81001; 85025; 86900; 86901; 90715; J1050